=== PATIENT | male | born 1935 | race Caucasian/White ===

== ENCOUNTER 2017-08-13 19:28 | Inpatient (IN) | payer MEDICARE, MEDICAID ==
[2017-08-13 20:32] LABS: #Basophils 0.1 thou/uL (0.0-0.2); #Eosinphils 0.1 thou/uL (0.0-0.7); #Lymphocytes 2.6 thou/uL (1.20-3.40); #Monocytes 0.8 thou/uL (0.11-0.59); #Neutrophils 7.5 thou/uL (1.40-6.50); %Basophils 0.7 % (0.0-1.0); %Eosinophils 0.7 % (0.0-10.0); %Lymphocytes 23.2 % (21.0-51.0); Hematocrit 49.3 % (42.0-52.0); Mean Platelet Volume 9.1 fL (7.4-10.4); Red Blood Cell (RBC) Count 4.67 mill/uL (4.70-6.10)
[2017-08-13 20:56] LABS: ALT (SGPT) 75 U/L (8-55); AST (SGOT) 59 U/L (5-34); Alkaline Phosphatase 69 U/L (40-150); Anion Gap 13 mmol/L (10-20); BUN (Urea Nitrogen) 29 mg/dL (8.4-25.7); Bilirubin, Total 0.8 mg/dL (0.2-1.2); CK (CPK) 58 U/L (30-200); Calc. Creatinine Clearance 0 mL/min (70-130); Calcium 9.4 mg/dL (7.8-10.44); Carbon Dioxide 27 mmol/L (23-31); Chloride 116 mmol/L (98-107); Estimated GFR-MDRD 49; Globulin 4.3 g/dL (2.4-3.5); Protein, Total 7.7 g/dL (5.8-8.1)
--- NOTE | 2017-08-13 21:50 | RAD ---
AP VIEW OF THE CHEST 08/13/17 INDICATION: Low O2 saturations. COMPARISON: Prior exam dated 11/30/13. FINDINGS: There is coarse interstitial markings likely reflecting underlying changes of COPD. Heart size and pu lmonary vasculature are within normal limits. No acute osseous abnormality is evident. No pneumothora x is evident. IMPRESSION: COPD change. No definite acute abnormality. POS: [facility]
[2017-08-13 22:03] LABS: Lactic Acid - Sepsis 1.9 mmol/L (0.5-2.2)
[2017-08-13] MEDS ORDERED: Guaifenesin DM 100-10/5 ML UDCUP PO PRN (23:04)
[2017-08-13] MEDS ORDERED: Acetaminophen 325 MG TAB PO PRN (23:04)
[2017-08-13] MEDS ORDERED: Ondansetron ODT 4 MG TAB PO PRN (23:04)
[2017-08-13] MEDS ORDERED: Lorazepam 0.5 MG TAB PO PRN (23:15)
--- NOTE | 2017-08-14 00:05 | RAD ---
AP VIEW OF THE CHEST 08/13/17 INDICATION: Cough. IMPRESSION: No acute cardiopulmonary abnormality. Stable COPD change when compared to the prior dated 08/13/17 at 7:19 p.m. POS: [facility]
[2017-08-14] MEDS: Sodium Chloride 0.9% 1,000 ML IV SCH ×2 (00:31→08:50)
[2017-08-14 06:02] LABS: #Lymphocytes 0.5 thou/uL (1.20-3.40); #Monocytes 0.1 thou/uL (0.11-0.59); #Neutrophils 7.1 thou/uL (1.40-6.50); %Eosinophils 0.2 % (0.0-10.0); %Lymphocytes 6.4 % (21.0-51.0); %Monocytes 0.8 % (0.0-10.0); Hematocrit 44.7 % (42.0-52.0); Mean Platelet Volume 9.1 fL (7.4-10.4); White Blood Cell (WBC) Count 7.7 thou/uL (4.8-10.8)
[2017-08-14 06:08] LABS: ALT (SGPT) 63 U/L (8-55); AST (SGOT) 36 U/L (5-34); Alkaline Phosphatase 62 U/L (40-150); Anion Gap 10 mmol/L (10-20); BUN (Urea Nitrogen) 29 mg/dL (8.4-25.7); BUN/Creatinine Ratio 22.66; Bilirubin, Total 0.6 mg/dL (0.2-1.2); Calc. Creatinine Clearance 46 mL/min (70-130); Carbon Dioxide 26 mmol/L (23-31); Chloride 119 mmol/L (98-107); Estimated GFR-MDRD 54; Globulin 3.5 g/dL (2.4-3.5); Phosphorus 2.9 mg/dL (2.3-4.7); Protein, Total 6.6 g/dL (5.8-8.1)
--- NOTE | 2017-08-14 07:50 | HP ---
DATE OF ADMISSION: 08/13/2017 CHIEF COMPLAINT: Shortness of breath. HISTORY OF PRESENT ILLNESS: Patient's medical history was primarily obtained from the medical record . Patient is from the EMS and the correction that he came from. The patient is an 82-year-old mal e who was brought to the emergency room with shortness of breath. Apparently, he was eating the dinn er tonight with his family and he threw up. The family got concerned and EMS was called. His SpO2 w as in the low 80s. Patient received DuoNebs and Solu-Medrol en route to the emergency room. SpO2 wa s in 100 after he arrived to the ER. Currently according to record, he is at his baseline mental sta tus, significant history of Alzheimer. PAST MEDICAL HISTORY: Again is Alzheimer, has a history of cardiac arrhythmia, has history of SVT tr eated with ablation. He has dementia and hypertension. PAST SURGICAL HISTORY: He has had right knee replacement, tonsillectomy, and adenoidectomy. SOCIAL HISTORY: Patient is a former smoker, smoked cigarettes and tobacco. No alcohol use. Lives a [facility]. ALLERGIES: He is allergic to RISPERDAL. REVIEW OF SYSTEMS: Not performed secondary to patient's mental status, which is at his baseline acco rding to daughter who was present in the room at the time of the exam, but she stated that was his ba tom. PHYSICAL EXAMINATION: VITAL SIGNS: Blood pressure was good 125/100 in the emergency room on initial presentation, pulse wa s 81, ox sat at 100% on facemask. At the time of exam, patient was not needing facemask anymore. He has nonlabored breathing. Respiratory rate of 20, temperature of 97.4. GENERAL: Constitutionally, patient appeared to be in nonacute distress. HEENT: His head has normal finding, atraumatic, normocephalic. His eyes, pupils equally round and r eactive to light. Normal ear exam. NECK: Normal exam. RESPIRATORY: Does not appear to be in any respiratory distress, slight decreased in breath sounds. CARDIOVASCULAR: Normal rate and rhythm. Heart sounds were normal. ABDOMEN: Nontender, no distention, no mass, no pulsatile mass. EXTREMITIES: He seems to hold his hands over his body and does not like to have them moved. His low er extremities, no edema were noted. Pedal pulses are normal. NEUROLOGIC: Mental status is reported to be at baseline. Speech is at baseline for patient. SKIN: Normal, dry and warm. IMAGING AND LABORATORY DATA: Chest x-ray is negative, no infiltrates, no pneumothorax, no hemothorax , no free air, no effusion. WBC was slightly elevated at 11, but most recent one was down to 7.7. H is hemoglobin is 14.7, sodium 151, chloride at 119. His creatinine initially was 1.39, now 1.28, BUN at 29. His AST and ALT were slightly elevated at 36 and 63 respectively. IMPRESSION: 1. Acute kidney injury with elevated creatinine, now normalized. 2. Dehydration with hypernatremia. The patient started on IV fluids and normal saline. It was only slightly elevated and now it seems to be trending down or stable with sodium of 151. 3. Generalized weakness, likely secondary to dehydration and dementia, chronic, stable mental status at baseline. PLAN: He is in observation. Condition is fair. Activity as tolerated. The patient has been starte d on medications. All of his home medications were resumed. Blood culture is pending, bilateral SCD s applied, he is a FULL CODE. We will continue to monitor his kidney status as well as his fluids ma y consider Nephrology consult as needed. Continue to monitor patient.
[2017-08-14] MEDS: Donepezil HCl 10 MG TAB PO SCH (08:53)
[2017-08-14] MEDS: Multivitamin W/ Minerals 1 TAB PO SCH (08:53)
[2017-08-14] MEDS: Metoprolol Tartrate 25 MG TAB PO SCH (08:58)
[2017-08-14] MEDS ORDERED: FLU VACC TS2017-18 (>65YR) 0.5 ML SYRINGE IM ONE (09:00)
--- NOTE | 2017-08-14 12:52 | PDOC.PN ---
- Subjective Encounter Start Date: 08/14/17 Encounter Start Time: 09:00 Subjective: not in distress, does not communicate or open eyes - Objective MAR Reviewed: Yes Vital Signs & Weight: Vital Signs (12 hours) Temp Pulse Resp BP BP Pulse Ox 08/14/17 12:13 98.1 F 81 16 131/75 100 08/14/17 12:12 97.9 F 105 H 16 127/74 93 L Result Diagrams: 08/14/17 05:23 08/14/17 05:23 Phys Exam - Physical Examination HEENT: PERRLA, sclera anicteric dry mucosa Neck: no JVD, supple Respiratory: no wheezing, no rales Cardiovascular: RRR, no significant murmur Gastrointestinal: soft, non-tender, no distention, positive bowel sounds Musculoskeletal: no edema, pulses present Neurological: non-focal, moves all 4 limbs Dx/Plan (1) Aspiration pneumonitis Code(s): J69.0 - PNEUMONITIS DUE TO INHALATION OF FOOD AND VOMIT Status: Suspected (2) COPD (chronic obstructive pulmonary disease) Status: Chronic Qualifiers: COPD type: unspecified COPD Qualified Code(s): J44.9 - Chronic obstructive pulmonary disease, unspecified (3) Acute kidney injury (nontraumatic) Code(s): N17.9 - ACUTE KIDNEY FAILURE, UNSPECIFIED Status: Resolved (4) Dehydration with hypernatremia Code(s): E87.0 - HYPEROSMOLALITY AND HYPERNATREMIA Status: Acute (5) Generalized weakness Code(s): R53.1 - WEAKNESS Status: Acute (6) Alzheimer's dementia Code(s): G30.9 - ALZHEIMER'S DISEASE, UNSPECIFIED; F02.80 - DEMENTIA IN OTH DISEASES CLASSD ELSWHR W/O BEHAVRL DISTURB Status: Chronic - Plan change iv fluids to d5w -: duoneb -: speech therapy consult -: change status to inpt -: labs in am, no antibiotics for now * . Review of Systems - Medications/Allergies Allergies/Adverse Reactions: Allergies Allergy/AdvReac Type Severity Reaction Status Date / Time risperidone [From Risperdal] Allergy AGITATION Verified 02/19/15 00:58 Medications: Current Medications Acetaminophen (Tylenol) 650 mg PO Q4H PRN PRN Reason: Headache/Fever or Pain Albuterol/Ipratropium (Duoneb) 3 ml NEB Q4H PRN PRN Reason: SOB &/or Wheezing Donepezil HCl (Aricept) 10 mg PO QAM [facility] Last Admin: 08/14/17 08:53 Dose: 10 mg Guaifenesin/Dextromethorphan (Robitussin Dm) 15 ml PO Q4H PRN PRN Reason: Cough Sodium Chloride (Normal Saline 0.9%) 1,000 mls @ 125 mls/hr IV .Q8H [facility] Last Admin: 08/14/17 08:50 Dose: 1,000 mls Iron/Minerals/Multivitamins (Theragran M) 1 tab PO DAILY [facility] Last Admin: 08/14/17 08:53 Dose: 1 tab Lorazepam (Ativan) 0.5 mg PO Q6H PRN PRN Reason: Agitation Memantine (Namenda) 10 mg PO BID [facility] Last Admin: 08/14/17 08:57 Dose: 10 mg Metoprolol Tartrate (Lopressor) 12.5 mg PO DAILY [facility] Last Admin: 08/14/17 08:58 Dose: Not Given Olanzapine (Zyprexa) 2.5 mg PO HS [facility] Ondansetron HCl (Zofran Odt) 4 mg PO Q6H PRN PRN Reason: Nausea/Vomiting Sertraline HCl (Zoloft) 100 mg PO HS [facility] Sodium Chloride (Flush - Normal Saline) 10 ml IVF Q12HR [facility] Last Admin: 08/14/17 08:58 Dose: 10 ml Sodium Chloride (Flush - Normal Saline) 10 ml IVF PRN PRN PRN Reason: Saline Flush
[2017-08-14] MEDS: Dextrose 5% in Water 1,000 ML IV SCH ×2 (13:04→23:43)
[2017-08-14] MEDS: OLANZapine 2.5 MG TAB PO SCH (20:33)
[2017-08-15 04:44] LABS: #Basophils 0.1 thou/uL (0.0-0.2); #Lymphocytes 1.3 thou/uL (1.20-3.40); #Monocytes 0.6 thou/uL (0.11-0.59); %Basophils 0.5 % (0.0-1.0); %Eosinophils 0.2 % (0.0-10.0); %Lymphocytes 11.5 % (21.0-51.0); %Monocytes 5.8 % (0.0-10.0); Hematocrit 40.4 % (42.0-52.0); Mean Platelet Volume 8.8 fL (7.4-10.4); Red Blood Cell (RBC) Count 3.86 mill/uL (4.70-6.10); White Blood Cell (WBC) Count 10.9 thou/uL (4.8-10.8)
[2017-08-15 04:58] LABS: Anion Gap 9 mmol/L (10-20); BUN (Urea Nitrogen) 27 mg/dL (8.4-25.7); Calc. Creatinine Clearance 53 mL/min (70-130); Calcium 8.5 mg/dL (7.8-10.44); Carbon Dioxide 26 mmol/L (23-31); Chloride 116 mmol/L (98-107); Estimated GFR-MDRD 63
[2017-08-15] MEDS: Dextrose 5% in Water 1,000 ML IV SCH ×2 (09:17→14:46)
[2017-08-15] MEDS: Donepezil HCl 10 MG TAB PO SCH (09:21)
[2017-08-15] MEDS: Multivitamin W/ Minerals 1 TAB PO SCH (09:21)
[2017-08-15] MEDS: Metoprolol Tartrate 25 MG TAB PO SCH (09:21)
--- NOTE | 2017-08-15 13:20 | PDOC.PN ---
- Subjective Encounter Start Date: 08/15/17 Encounter Start Time: 10:50 Subjective: does not communicate or open eyes to verbal stimuli -: not in distress - Objective MAR Reviewed: Yes Vital Signs & Weight: Vital Signs (12 hours) Temp Pulse Resp BP Pulse Ox 08/15/17 12:06 98.1 F 50 L 20 117/69 91 L 08/15/17 08:39 98.5 F 62 20 116/69 93 L 08/15/17 08:00 98.5 F 62 20 Weight Admit Weight 156 lb 1.6 oz Weight 159 lb 1.6 oz I&O: 08/14/17 08/15/17 08/16/17 06:59 06:59 06:59 Intake Total 2470 120 Balance 2470 120 Result Diagrams: 08/15/17 03:38 08/15/17 03:38 Phys Exam - Physical Examination HEENT: PERRLA, sclera anicteric Neck: no nodes, no JVD Respiratory: no wheezing, no rales rhonchi+ Cardiovascular: RRR, no significant murmur Gastrointestinal: soft, non-tender, positive bowel sounds Musculoskeletal: no edema, pulses present Neurological: non-focal, moves all 4 limbs Dx/Plan (1) Aspiration pneumonitis Code(s): J69.0 - PNEUMONITIS DUE TO INHALATION OF FOOD AND VOMIT Status: Acute (2) COPD (chronic obstructive pulmonary disease) Status: Chronic Qualifiers: COPD type: COPD with acute exacerbation Qualified Code(s): J44.1 - Chronic obstructive pulmonary disease with (acute) exacerbation (3) Acute kidney injury (nontraumatic) Code(s): N17.9 - ACUTE KIDNEY FAILURE, UNSPECIFIED Status: Resolved (4) Dehydration with hypernatremia Code(s): E87.0 - HYPEROSMOLALITY AND HYPERNATREMIA Status: Acute (5) Generalized weakness Code(s): R53.1 - WEAKNESS Status: Acute (6) Alzheimer's dementia Code(s): G30.9 - ALZHEIMER'S DISEASE, UNSPECIFIED; F02.80 - DEMENTIA IN OTH DISEASES CLASSD ELSWHR W/O BEHAVRL DISTURB Status: Chronic - Plan will start pt on steroids, empiric levaquin -: decrease ivf to 50mls/hr -: hypernatremia is resolving -: modified ba swallow in am -: pt has advanced dementia * . Review of Systems - Medications/Allergies Allergies/Adverse Reactions: Allergies Allergy/AdvReac Type Severity Reaction Status Date / Time risperidone [From Risperdal] Allergy AGITATION Verified 02/19/15 00:58 Medications: Current Medications Acetaminophen (Tylenol) 650 mg PO Q4H PRN PRN Reason: Headache/Fever or Pain Albuterol/Ipratropium (Duoneb) 3 ml NEB Q4H PRN PRN Reason: SOB &/or Wheezing Albuterol/Ipratropium (Duoneb) 3 ml NEB [id number] [facility] Donepezil HCl (Aricept) 10 mg PO QAM [facility] Last Admin: 08/15/17 09:21 Dose: 10 mg Guaifenesin (Mucinex) 600 mg PO Q12HR [facility] Guaifenesin/Dextromethorphan (Robitussin Dm) 15 ml PO Q4H PRN PRN Reason: Cough Dextrose/Water (D5w) 1,000 mls @ 50 mls/hr IV .Q20H [facility] Levofloxacin 500 mg/ Device 100 mls @ 100 mls/hr IVPB Q24HR [facility] Iron/Minerals/Multivitamins (Theragran M) 1 tab PO DAILY [facility] Last Admin: 08/15/17 09:21 Dose: 1 tab Lorazepam (Ativan) 0.5 mg PO Q6H PRN PRN Reason: Agitation Memantine (Namenda) 10 mg PO BID [facility] Last Admin: 08/15/17 09:21 Dose: 10 mg Methylprednisolone Sodium Succinate (Solu-Medrol) 40 mg IVP Q6HR [facility] Metoprolol Tartrate (Lopressor) 12.5 mg PO DAILY [facility] Last Admin: 08/15/17 09:21 Dose: 12.5 mg Olanzapine (Zyprexa) 2.5 mg PO HS [facility] Last Admin: 08/14/17 20:33 Dose: 2.5 mg Ondansetron HCl (Zofran Odt) 4 mg PO Q6H PRN PRN Reason: Nausea/Vomiting Sertraline HCl (Zoloft) 100 mg PO HS [facility] Last Admin: 08/14/17 20:33 Dose: 100 mg Sodium Chloride (Flush - Normal Saline) 10 ml IVF Q12HR [facility] Last Admin: 08/15/17 09:21 Dose: Not Given Sodium Chloride (Flush - Normal Saline) 10 ml IVF PRN PRN PRN Reason: Saline Flush
[2017-08-15] MEDS ORDERED: Clopidogrel Bisulfate 75 MG TAB ONE (17:18)
[2017-08-15] MEDS: guaiFENesin ER 600 MG TAB PO SCH (21:11)
[2017-08-15] MEDS: OLANZapine 2.5 MG TAB PO SCH (21:13)
[2017-08-16] MEDS: Dextrose 5% in Water 1,000 ML IV SCH ×2 (01:38→23:17)
[2017-08-16 06:06] LABS: #Lymphocytes 0.5 thou/uL (1.20-3.40); #Monocytes 0.1 thou/uL (0.11-0.59); #Neutrophils 6.7 thou/uL (1.40-6.50); %Eosinophils 0.3 % (0.0-10.0); %Lymphocytes 6.4 % (21.0-51.0); %Monocytes 1.1 % (0.0-10.0); Hematocrit 40.6 % (42.0-52.0); Mean Platelet Volume 8.6 fL (7.4-10.4); Red Blood Cell (RBC) Count 3.93 mill/uL (4.70-6.10); White Blood Cell (WBC) Count 7.2 thou/uL (4.8-10.8)
[2017-08-16 06:19] LABS: ALT (SGPT) 53 U/L (8-55); AST (SGOT) 29 U/L (5-34); Alkaline Phosphatase 57 U/L (40-150); Anion Gap 8 mmol/L (10-20); BUN (Urea Nitrogen) 21 mg/dL (8.4-25.7); Bilirubin, Total 0.8 mg/dL (0.2-1.2); Calc. Creatinine Clearance 61 mL/min (70-130); Calcium 8.4 mg/dL (7.8-10.44); Carbon Dioxide 24 mmol/L (23-31); Chloride 111 mmol/L (98-107); Estimated GFR-MDRD 75; Globulin 3.2 g/dL (2.4-3.5); Protein, Total 6.1 g/dL (5.8-8.1)
[2017-08-16] MEDS: Multivitamin W/ Minerals 1 TAB PO SCH ×2 (08:11→09:01)
[2017-08-16] MEDS: Metoprolol Tartrate 25 MG TAB PO SCH ×2 (08:11→09:01)
[2017-08-16] MEDS: Donepezil HCl 10 MG TAB PO SCH ×2 (08:11→09:02)
[2017-08-16] MEDS: guaiFENesin ER 600 MG TAB PO SCH ×3 (08:11→20:25)
[2017-08-16 10:56] LABS: Sodium 143 mmol/L (135-148)
[2017-08-16 10:58] LABS: Modified Allen's Test POSITIVE
[2017-08-16 10:59] LABS: Mode RA; Vent NO
--- NOTE | 2017-08-16 11:53 | PDOC.PN ---
- Subjective Encounter Start Date: 08/16/17 Encounter Start Time: 11:10 Subjective: not awake, snoring at present -: not in distress - Objective Resuscitation Status: Resuscitation Status DNR:Do Not Resuscitate MAR Reviewed: Yes Vital Signs & Weight: Vital Signs (12 hours) Temp Pulse Resp BP Pulse Ox 08/16/17 08:44 97.9 F 64 20 122/66 93 L 08/16/17 08:00 97.9 F 64 20 08/16/17 06:25 51 L 20 91 L 08/16/17 03:21 96 08/16/17 00:28 66 12 96 Weight Admit Weight 156 lb 1.6 oz Weight 161 lb 8 oz I&O: 08/15/17 08/16/17 08/17/17 06:59 06:59 06:59 Intake Total 3360 2138 10 Balance 0 2138 10 Result Diagrams: 08/16/17 05:45 08/16/17 05:45 Phys Exam - Physical Examination HEENT: sclera anicteric dry mucosa Neck: no JVD, supple Respiratory: no wheezing, no rales rhonchi+ Cardiovascular: RRR, no significant murmur Gastrointestinal: soft, non-tender, no distention, positive bowel sounds Musculoskeletal: no edema, pulses present Neurological: non-focal, moves all 4 limbs Dx/Plan (1) Aspiration pneumonitis Code(s): J69.0 - PNEUMONITIS DUE TO INHALATION OF FOOD AND VOMIT Status: Acute (2) COPD (chronic obstructive pulmonary disease) Status: Chronic Qualifiers: COPD type: COPD with acute exacerbation Qualified Code(s): J44.1 - Chronic obstructive pulmonary disease with (acute) exacerbation (3) Acute kidney injury (nontraumatic) Code(s): N17.9 - ACUTE KIDNEY FAILURE, UNSPECIFIED Status: Resolved (4) Dehydration with hypernatremia Code(s): E87.0 - HYPEROSMOLALITY AND HYPERNATREMIA Status: Resolved (5) Generalized weakness Code(s): R53.1 - WEAKNESS Status: Acute (6) Alzheimer's dementia Code(s): G30.9 - ALZHEIMER'S DISEASE, UNSPECIFIED; F02.80 - DEMENTIA IN OTH DISEASES CLASSD ELSWHR W/O BEHAVRL DISTURB Status: Chronic - Plan d/w son Mr.Anderson Pinto, pt is known to have advance dementia -: rarely communicates when family visits him, sleeps mostly per son -: He is DNR, this was confirmed with son over phone -: he had apneic spells per RN taking care of him with lips turning blue -: is on levaquin, steroids and nebs. Palliative care consult * . d/w , will involve palliative care and [facility] at his snf. Review of Systems - Medications/Allergies Allergies/Adverse Reactions: Allergies Allergy/AdvReac Type Severity Reaction Status Date / Time risperidone [From Risperdal] Allergy AGITATION Verified 02/19/15 00:58 Medications: Current Medications Acetaminophen (Tylenol) 650 mg PO Q4H PRN PRN Reason: Headache/Fever or Pain Albuterol/Ipratropium (Duoneb) 3 ml NEB Q4H PRN PRN Reason: SOB &/or Wheezing Albuterol/Ipratropium (Duoneb) 3 ml NEB [id number] [facility] Last Admin: 08/16/17 06:25 Dose: 3 ml Donepezil HCl (Aricept) 10 mg PO QAM [facility] Last Admin: 08/16/17 09:02 Dose: 10 mg Guaifenesin (Mucinex) 600 mg PO Q12HR [facility] Last Admin: 08/16/17 09:01 Dose: 600 mg Guaifenesin/Dextromethorphan (Robitussin Dm) 15 ml PO Q4H PRN PRN Reason: Cough Dextrose/Water (D5w) 1,000 mls @ 50 mls/hr IV .Q20H [facility] Last Admin: 08/16/17 01:38 Dose: 1,000 mls Levofloxacin 500 mg/ Device 100 mls @ 100 mls/hr IVPB Q24HR [facility] Last Admin: 08/15/17 14:45 Dose: 100 mls Iron/Minerals/Multivitamins (Theragran M) 1 tab PO DAILY [facility] Last Admin: 08/16/17 09:01 Dose: 1 tab Lorazepam (Ativan) 0.5 mg PO Q6H PRN PRN Reason: Agitation Memantine (Namenda) 10 mg PO BID [facility] Last Admin: 08/16/17 09:01 Dose: 10 mg Methylprednisolone Sodium Succinate (Solu-Medrol) 40 mg IVP Q6HR [facility] Last Admin: 08/16/17 11:31 Dose: 40 mg Metoprolol Tartrate (Lopressor) 12.5 mg PO DAILY [facility] Last Admin: 08/16/17 09:01 Dose: 12.5 mg Ondansetron HCl (Zofran Odt) 4 mg PO Q6H PRN PRN Reason: Nausea/Vomiting Sertraline HCl (Zoloft) 100 mg PO HS [facility] Last Admin: 08/15/17 21:11 Dose: 100 mg Sodium Chloride (Flush - Normal Saline) 10 ml IVF Q12HR [facility] Last Admin: 08/16/17 08:12 Dose: 10 ml Sodium Chloride (Flush - Normal Saline) 10 ml IVF PRN PRN PRN Reason: Saline Flush Last Admin: 08/16/17 06:22 Dose: 10 ml
--- NOTE | 2017-08-16 13:54 | PRG ---
DATE OF SERVICE: 08/16/2017 SERVICE: Pulmonary Medicine. REASON FOR CONSULTATION: Respiratory failure. HISTORY OF PRESENT ILLNESS: The patient is an 82-year-old white male with past medical history significant for very advanced dementia. At baseline, he is bedbound. He talks occasionally, but most of the time he makes incomprehensible speech. Apparently, he is still eating. He does not have a PEG tube. He was eating and had vomiting episode. Shortly following this, he had an episode of difficulty with breathing. EMS was called and when they arrived on the scene, his saturations were in the 80s. He got some Solu-Medrol and nebulized medication. In the Emergency Department, he had recovered his saturations. He currently cannot provide any additional elements of the history. PAST MEDICAL HISTORY: 1. Alzheimer's dementia, advanced. 2. History of SVT, status post ablation. 3. Hypertension. PAST SURGICAL HISTORY: 1. Right knee replacement. 2. Tonsillectomy. 3. Adenoidectomy. SOCIAL HISTORY: Negative for alcohol, tobacco or illicit drug use. He lives at [facility] in [place], [place]. He has no exposure to chemicals, dust asbestos or tuberculosis. ALLERGIES: RISPERDAL. MEDICATIONS: List of inpatient medications was reviewed. There are no specific updates made. 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 PHYSICAL EXAMINATION: VITAL SIGNS: Afebrile, pulse 64, blood pressure 122/66, respirations 20, saturation 93% on room air. GENERAL: Patient is awake, alert, no apparent distress. LUNGS: Decent air entry. There is no prolonged expiratory phase or rhonchi appreciated. HEART: Normal rate, regular. ABDOMEN: Soft, nontender, and nondistended. Bowel sounds positive. MUSCULOSKELETAL: No cyanosis or clubbing. No pitting in the bilateral lower extremities. NEUROLOGIC: Grossly nonfocal. LABORATORY DATA: WBC 7.2, hemoglobin 13.4, and platelets 174,000. ABG is completely unremarkable. His pO2 was 76 on room air at that time, corresponding to saturation of 96%. Basic metabolic profile and liver function studies are unremarkable. BNP 51, cardiac enzymes negative, lactate is unremarkable. Blood cultures x2 are unremarkable. IMAGING: Chest x-ray demonstrates no acute cardiopulmonary abnormality. There is no obvious effusions are identified. ASSESSMENT: 1. Acute hypoxic respiratory failure, resolved. 2. Aspiration, suspected. 3. Chronic obstructive pulmonary disease without current exacerbation. 4. Dehydration secondary to inadequate intake. 5. Alzheimer's dementia, advanced. 6. Oropharyngeal dysphagia, possible. PLAN: I will switch his IV fluids over to half normal saline and continue maintenance doses. I agree with speech evaluation as well as palliative care consultation. The patient ultimately is at the end of his life because of advancing dementia. His antibiotic can be switched over to p.o. medication. We can complete a 5-day course of therapy. Pulmonary/Critical Care will continue to follow for the time being, but from my perspective, he has returned to his baseline and is a candidate for discharge from the hospital. I do think it is reasonable to consider transitioning the patient over to comfort care only as we do not have the ability to fix the underlying process here. PEG tube will not decrease his risk of aspiration related diseases. MTDD
--- NOTE | 2017-08-16 16:18 | RAD ---
MODIFIED BARIUM SWALLOW IN THE PRESENCE OF A SPEECH THERAPIST: Date: 08/16/17 HISTORY: 82-year-old male with unspecified dysphagia, feeding difficulties. FINDINGS: There is aspiration with thin liquids. There is pooling of contrast in the vallecula and piriform sin uses with incomplete emptying on subsequent swallows. Please see recommendations of the speech therapist for further management. POS: [facility]
[2017-08-17 06:09] LABS: #Lymphocytes 0.5 thou/uL (1.20-3.40); #Monocytes 0.4 thou/uL (0.11-0.59); #Neutrophils 14.4 thou/uL (1.40-6.50); %Basophils 0.2 % (0.0-1.0); %Eosinophils 0.3 % (0.0-10.0); %Lymphocytes 3.3 % (21.0-51.0); %Monocytes 2.8 % (0.0-10.0); Hematocrit 44.4 % (42.0-52.0); Mean Platelet Volume 9.5 fL (7.4-10.4); Red Blood Cell (RBC) Count 4.39 mill/uL (4.70-6.10); White Blood Cell (WBC) Count 15.4 thou/uL (4.8-10.8)
[2017-08-17 06:58] LABS: AST (SGOT) 24 U/L (5-34); Bilirubin, Total 0.6 mg/dL (0.2-1.2); Calcium 8.8 mg/dL (7.8-10.44); Chloride 110 mmol/L (98-107)
[2017-08-17 07:09] LABS: ALT (SGPT) 53 U/L (8-55); Alkaline Phosphatase 59 U/L (40-150); Calc. Creatinine Clearance 64 mL/min (70-130); Carbon Dioxide 20 mmol/L (23-31); Estimated GFR-MDRD 82; Globulin 3.4 g/dL (2.4-3.5); Protein, Total 6.4 g/dL (5.8-8.1)
[2017-08-17 07:17] LABS: Anion Gap 13 mmol/L (10-20)
[2017-08-17] MEDS: guaiFENesin ER 600 MG TAB PO SCH ×2 (08:38→20:07)
[2017-08-17] MEDS: Donepezil HCl 10 MG TAB PO SCH (08:38)
[2017-08-17] MEDS: Multivitamin W/ Minerals 1 TAB PO SCH (08:39)
[2017-08-17] MEDS: Metoprolol Tartrate 25 MG TAB PO SCH (08:39)
--- NOTE | 2017-08-17 10:59 | PDOC.PN ---
- Subjective Encounter Start Date: 08/17/17 Encounter Start Time: 08:00 Subjective: not in distress, closed eyes, doesn't respond to verbal stimuli - Objective Resuscitation Status: Resuscitation Status DNR:Do Not Resuscitate MAR Reviewed: Yes Vital Signs & Weight: Vital Signs (12 hours) Temp Pulse Resp BP Pulse Ox 08/17/17 08:00 97.2 F L 77 16 125/71 92 L 08/17/17 07:04 53 L 16 94 L 08/17/17 03:18 96 08/17/17 00:41 60 16 96 Weight Admit Weight 156 lb 1.6 oz Weight 156 lb 6 oz I&O: 08/16/17 08/17/17 08/18/17 06:59 06:59 06:59 Intake Total 2137 1889 Balance 2137 1889 Result Diagrams: 08/17/17 05:43 08/17/17 05:43 Phys Exam - Physical Examination HEENT: PERRLA, sclera anicteric Neck: no JVD, supple Respiratory: no wheezing, no rales Cardiovascular: RRR, no significant murmur Gastrointestinal: soft, non-tender, positive bowel sounds Musculoskeletal: no edema, pulses present Neurological: non-focal, moves all 4 limbs Dx/Plan (1) Aspiration pneumonitis Code(s): J69.0 - PNEUMONITIS DUE TO INHALATION OF FOOD AND VOMIT Status: Acute (2) COPD (chronic obstructive pulmonary disease) Status: Chronic Qualifiers: COPD type: COPD with acute exacerbation Qualified Code(s): J44.1 - Chronic obstructive pulmonary disease with (acute) exacerbation (3) Acute kidney injury (nontraumatic) Code(s): N17.9 - ACUTE KIDNEY FAILURE, UNSPECIFIED Status: Resolved (4) Dehydration with hypernatremia Code(s): E87.0 - HYPEROSMOLALITY AND HYPERNATREMIA Status: Resolved (5) Generalized weakness Code(s): R53.1 - WEAKNESS Status: Acute (6) Alzheimer's dementia Code(s): G30.9 - ALZHEIMER'S DISEASE, UNSPECIFIED; F02.80 - DEMENTIA IN OTH DISEASES CLASSD ELSWHR W/O BEHAVRL DISTURB Status: Chronic - Plan is on levaquin, nebs and steroids -: advanced dementia -: has signs of aspiration on modified Ba swallow -: palliative care, ?hospice set up at [facility] if family agrees -: on gentle hydration, replace potassium * . Review of Systems - Medications/Allergies Allergies/Adverse Reactions: Allergies Allergy/AdvReac Type Severity Reaction Status Date / Time risperidone [From Risperdal] Allergy AGITATION Verified 02/19/15 00:58 Medications: Current Medications Acetaminophen (Tylenol) 650 mg PO Q4H PRN PRN Reason: Headache/Fever or Pain Last Admin: 08/16/17 20:29 Dose: 650 mg Albuterol/Ipratropium (Duoneb) 3 ml NEB Q4H PRN PRN Reason: SOB &/or Wheezing Albuterol/Ipratropium (Duoneb) 3 ml NEB [id number] [facility] Last Admin: 08/17/17 07:04 Dose: 3 ml Donepezil HCl (Aricept) 10 mg PO QAM [facility] Last Admin: 08/17/17 08:38 Dose: 10 mg Guaifenesin (Mucinex) 600 mg PO Q12HR [facility] Last Admin: 08/17/17 08:38 Dose: 600 mg Guaifenesin/Dextromethorphan (Robitussin Dm) 15 ml PO Q4H PRN PRN Reason: Cough Dextrose/Water (D5w) 1,000 mls @ 50 mls/hr IV .Q20H [facility] Last Admin: 08/16/17 23:17 Dose: 1,000 mls Levofloxacin 500 mg/ Device 100 mls @ 100 mls/hr IVPB Q24HR [facility] Last Admin: 08/16/17 13:30 Dose: 100 mls Iron/Minerals/Multivitamins (Theragran M) 1 tab PO DAILY [facility] Last Admin: 08/17/17 08:39 Dose: 1 tab Lorazepam (Ativan) 0.5 mg PO Q6H PRN PRN Reason: Agitation Memantine (Namenda) 10 mg PO BID [facility] Last Admin: 08/17/17 08:38 Dose: 10 mg Methylprednisolone Sodium Succinate (Solu-Medrol) 40 mg IVP Q6HR [facility] Last Admin: 08/17/17 05:09 Dose: 40 mg Metoprolol Tartrate (Lopressor) 12.5 mg PO DAILY [facility] Last Admin: 08/17/17 08:39 Dose: 12.5 mg Ondansetron HCl (Zofran Odt) 4 mg PO Q6H PRN PRN Reason: Nausea/Vomiting Potassium Chloride (K-Dur) 40 meq PO BID-WM [facility] Sertraline HCl (Zoloft) 100 mg PO HS [facility] Last Admin: 08/16/17 20:25 Dose: 100 mg Sodium Chloride (Flush - Normal Saline) 10 ml IVF Q12HR [facility] Last Admin: 08/17/17 08:39 Dose: Not Given Sodium Chloride (Flush - Normal Saline) 10 ml IVF PRN PRN PRN Reason: Saline Flush Last Admin: 08/16/17 06:22 Dose: 10 ml
[2017-08-17] MEDS: Dextrose 5% in Water 1,000 ML IV SCH ×2 (12:02→20:07)
[2017-08-17 12:20] VITALS: BMI 21.2
[2017-08-17] MEDS: Potassium Chloride 20 MEQ TAB PO SCH (17:34)
--- NOTE | 2017-08-17 19:01 | PRG ---
DATE OF SERVICE: 08/17/2017 SERVICE: Pulmonary Medicine. INTERVAL HISTORY: The patient is doing fine from a respiratory standpoint. He remains in his usual state of health. He cannot provide any additional elements of the history because of underlying cogn itive impairment. PHYSICAL EXAMINATION: VITAL SIGNS: Afebrile, pulse 58, blood pressure 130/76, respirations 16, saturation 98% on room air. GENERAL: The patient is awake and alert, in no apparent distress. LUNGS: Decent air entry. Rhonchi are present. No crackles. HEART: Normal rate and regular. ABDOMEN: Soft, nontender and nondistended. Bowel sounds positive. MUSCULOSKELETAL: No cyanosis or clubbing. No pitting in the bilateral lower extremities. NEUROLOGIC: Grossly nonfocal. LABORATORY DATA: WBC 15.4, hemoglobin 14.8 and platelets 181,000. Potassium 3.2. Basic metabolic p rofile and liver function studies are otherwise unremarkable. Creatinine is stable at 0.89 and impro ving actually. Sodium 140. Blood cultures x2 are unremarkable. IMAGING DATA: Modified barium swallow demonstrates no evidence of aspiration or penetration. ASSESSMENT: 1. Acute hypoxic respiratory failure, resolved. 2. Chronic obstructive pulmonary disease without current exacerbation. 3. Dehydration, secondary to inadequate intake. 4. Alzheimer dementia, advanced. 5. Aspiration. PLAN: We will continue a 5-day course of antibiotic therapy. At this point, the patient has no furt her requirements for inpatient Pulmonary Critical Care opinion. As such, we will sign off. The carlos ent is to have a repeat chest x-ray in 4-6 weeks in the outpatient setting to make the infiltrate trudy ars. A palliative care discussion is need to be continued in order to discuss goals of care moving f orward. Given his advanced debility and dementia, the likelihood of recurrent admissions to the hosp ital is extraordinarily high.
[2017-08-18 06:24] LABS: Anion Gap 14 mmol/L (10-20); BUN (Urea Nitrogen) 23 mg/dL (8.4-25.7); Calc. Creatinine Clearance 62 mL/min (70-130); Calcium 9.5 mg/dL (7.8-10.44); Carbon Dioxide 18 mmol/L (23-31); Chloride 110 mmol/L (98-107); Estimated GFR-MDRD 79
[2017-08-18 06:28] LABS: #Lymphocytes 0.4 thou/uL (1.20-3.40); #Monocytes 0.6 thou/uL (0.11-0.59); #Neutrophils 16.9 thou/uL (1.40-6.50); %Basophils 0.1 % (0.0-1.0); %Eosinophils 0.1 % (0.0-10.0); %Lymphocytes 2.1 % (21.0-51.0); %Monocytes 3.6 % (0.0-10.0); Hematocrit 47.3 % (42.0-52.0); Macrocytosis SLIGHT = 6-15 cells (100X) (0-5/hpf); Mean Platelet Volume 10.2 fL (7.4-10.4); Red Blood Cell (RBC) Count 4.51 mill/uL (4.70-6.10)
[2017-08-18] MEDS: Potassium Chloride 20 MEQ TAB PO SCH ×2 (08:26→11:24)
[2017-08-18] MEDS: Metoprolol Tartrate 25 MG TAB PO SCH (08:26)
[2017-08-18] MEDS: Donepezil HCl 10 MG TAB PO SCH (08:26)
[2017-08-18] MEDS: Multivitamin W/ Minerals 1 TAB PO SCH (08:26)
[2017-08-18] MEDS: guaiFENesin ER 600 MG TAB PO SCH ×2 (08:26→20:36)
--- NOTE | 2017-08-18 12:43 | PDOC.PN ---
- Subjective Encounter Start Date: 08/18/17 Encounter Start Time: 10:00 -: non-verbal Subjective: not in distress - Objective Resuscitation Status: Resuscitation Status DNR:Do Not Resuscitate MAR Reviewed: Yes Vital Signs & Weight: Vital Signs (12 hours) Temp Pulse Resp BP Pulse Ox 08/18/17 08:21 60 14 08/18/17 08:00 97.7 F 75 14 116/68 96 08/18/17 01:35 66 16 95 Weight Admit Weight 156 lb 1.6 oz Weight 156 lb 6 oz I&O: 08/17/17 08/18/17 08/19/17 06:59 06:59 06:59 Intake Total 1890 1750 Balance 189 1750 Result Diagrams: 08/18/17 04:26 08/18/17 04:27 Phys Exam - Physical Examination HEENT: moist MMs, sclera anicteric Neck: no JVD, supple Respiratory: no wheezing, no rales Cardiovascular: RRR, no significant murmur Gastrointestinal: soft, no distention, positive bowel sounds Musculoskeletal: no edema, pulses present Neurological: non-focal, moves all 4 limbs Dx/Plan (1) Aspiration pneumonitis Code(s): J69.0 - PNEUMONITIS DUE TO INHALATION OF FOOD AND VOMIT Status: Acute (2) COPD (chronic obstructive pulmonary disease) Status: Chronic Qualifiers: COPD type: COPD with acute exacerbation Qualified Code(s): J44.1 - Chronic obstructive pulmonary disease with (acute) exacerbation (3) Acute kidney injury (nontraumatic) Code(s): N17.9 - ACUTE KIDNEY FAILURE, UNSPECIFIED Status: Resolved (4) Dehydration with hypernatremia Code(s): E87.0 - HYPEROSMOLALITY AND HYPERNATREMIA Status: Resolved (5) Generalized weakness Code(s): R53.1 - WEAKNESS Status: Acute (6) Alzheimer's dementia Code(s): G30.9 - ALZHEIMER'S DISEASE, UNSPECIFIED; F02.80 - DEMENTIA IN OTH DISEASES CLASSD ELSWHR W/O BEHAVRL DISTURB Status: Chronic - Plan d/w son over phone about current condition and risk of re-admission and pos -: -sible worsoning as his dementia progresses. -: they will be meeting with hospice tomorrow -: may dc to snf in am -: nebs, steroids, levaquin and d5w * . Review of Systems - Medications/Allergies Allergies/Adverse Reactions: Allergies Allergy/AdvReac Type Severity Reaction Status Date / Time risperidone [From Risperdal] Allergy AGITATION Verified 02/19/15 00:58 Medications: Current Medications Acetaminophen (Tylenol) 650 mg PO Q4H PRN PRN Reason: Headache/Fever or Pain Last Admin: 08/16/17 20:29 Dose: 650 mg Albuterol/Ipratropium (Duoneb) 3 ml NEB Q4H PRN PRN Reason: SOB &/or Wheezing Albuterol/Ipratropium (Duoneb) 3 ml NEB [id number] [facility] Last Admin: 08/18/17 08:21 Dose: 3 ml Donepezil HCl (Aricept) 10 mg PO QAM [facility] Last Admin: 08/18/17 08:26 Dose: 10 mg Guaifenesin (Mucinex) 600 mg PO Q12HR [facility] Last Admin: 08/18/17 08:26 Dose: 600 mg Guaifenesin/Dextromethorphan (Robitussin Dm) 15 ml PO Q4H PRN PRN Reason: Cough Dextrose/Water (D5w) 1,000 mls @ 50 mls/hr IV .Q20H [facility] Last Admin: 08/17/17 20:07 Dose: 1,000 mls Levofloxacin 500 mg/ Device 100 mls @ 100 mls/hr IVPB Q24HR [facility] Last Admin: 08/17/17 12:06 Dose: 100 mls Iron/Minerals/Multivitamins (Theragran M) 1 tab PO DAILY [facility] Last Admin: 08/18/17 08:26 Dose: 1 tab Lorazepam (Ativan) 0.5 mg PO Q6H PRN PRN Reason: Agitation Memantine (Namenda) 10 mg PO BID [facility] Last Admin: 08/18/17 08:26 Dose: 10 mg Methylprednisolone Sodium Succinate (Solu-Medrol) 20 mg IVP Q8HR [facility] Last Admin: 08/18/17 04:57 Dose: 20 mg Metoprolol Tartrate (Lopressor) 12.5 mg PO DAILY [facility] Last Admin: 08/18/17 08:26 Dose: 12.5 mg Ondansetron HCl (Zofran Odt) 4 mg PO Q6H PRN PRN Reason: Nausea/Vomiting Potassium Chloride (K-Dur) 40 meq PO BID-WM [facility] Sertraline HCl (Zoloft) 100 mg PO HS [facility] Last Admin: 08/17/17 20:07 Dose: 100 mg Sodium Chloride (Flush - Normal Saline) 10 ml IVF Q12HR [facility] Last Admin: 08/18/17 08:26 Dose: Not Given Sodium Chloride (Flush - Normal Saline) 10 ml IVF PRN PRN PRN Reason: Saline Flush Last Admin: 08/17/17 12:01 Dose: 10 ml
[2017-08-18] MEDS: Dextrose 5% in Water 1,000 ML IV SCH ×2 (13:02→20:43)
[2017-08-19 05:19] LABS: #Lymphocytes 0.5 thou/uL (1.20-3.40); #Monocytes 0.7 thou/uL (0.11-0.59); #Neutrophils 15.8 thou/uL (1.40-6.50); %Eosinophils 0.1 % (0.0-10.0); %Monocytes 4.2 % (0.0-10.0); Hematocrit 44.9 % (42.0-52.0); Mean Platelet Volume 9.5 fL (7.4-10.4); Red Blood Cell (RBC) Count 4.37 mill/uL (4.70-6.10); White Blood Cell (WBC) Count 17.1 thou/uL (4.8-10.8)
[2017-08-19 05:59] LABS: Anion Gap 11 mmol/L (10-20); BUN (Urea Nitrogen) 26 mg/dL (8.4-25.7); Calc. Creatinine Clearance 65 mL/min (70-130); Calcium 8.9 mg/dL (7.8-10.44); Carbon Dioxide 21 mmol/L (23-31); Chloride 109 mmol/L (98-107); Estimated GFR-MDRD 83
[2017-08-19 07:37] VITALS: BP 131/77; TEMP 97.8
[2017-08-19] MEDS ORDERED: Potassium Chloride 20 MEQ TAB PO SCH (08:00)
[2017-08-19] MEDS: Multivitamin W/ Minerals 1 TAB PO SCH (09:33)
[2017-08-19] MEDS: Donepezil HCl 10 MG TAB PO SCH (09:33)
[2017-08-19] MEDS: Metoprolol Tartrate 25 MG TAB PO SCH (09:33)
[2017-08-19] MEDS: guaiFENesin ER 600 MG TAB PO SCH (09:34)
--- NOTE | 2017-08-19 13:20 | PDOC.PN ---
- Subjective Encounter Start Date: 08/19/17 Encounter Start Time: 07:25 -: non-verbal Subjective: not in distress - Objective Resuscitation Status: Resuscitation Status DNR:Do Not Resuscitate MAR Reviewed: Yes Vital Signs & Weight: Vital Signs (12 hours) Temp Pulse Resp BP Pulse Ox 08/19/17 08:00 97.8 F 71 18 93 L 08/19/17 07:34 97.8 F 71 18 131/77 93 L 08/19/17 06:48 98.0 F 72 20 121/69 98 08/19/17 06:39 65 14 Weight Admit Weight 156 lb 1.6 oz Weight 156 lb 6 oz I&O: 08/18/17 08/19/17 08/20/17 06:59 06:59 06:59 Intake Total 1750 1850 Balance 1750 1850 Result Diagrams: 08/19/17 04:35 08/19/17 04:35 Phys Exam - Physical Examination HEENT: PERRLA, moist MMs Neck: no JVD, supple Respiratory: no wheezing, no rales Cardiovascular: RRR, no significant murmur Gastrointestinal: soft, non-tender, no distention, positive bowel sounds Musculoskeletal: no edema, pulses present Neurological: non-focal, moves all 4 limbs Dx/Plan (1) Aspiration pneumonitis Code(s): J69.0 - PNEUMONITIS DUE TO INHALATION OF FOOD AND VOMIT Status: Acute (2) COPD (chronic obstructive pulmonary disease) Status: Chronic Qualifiers: COPD type: COPD with acute exacerbation Qualified Code(s): J44.1 - Chronic obstructive pulmonary disease with (acute) exacerbation (3) Acute kidney injury (nontraumatic) Code(s): N17.9 - ACUTE KIDNEY FAILURE, UNSPECIFIED Status: Resolved (4) Dehydration with hypernatremia Code(s): E87.0 - HYPEROSMOLALITY AND HYPERNATREMIA Status: Resolved (5) Generalized weakness Code(s): R53.1 - WEAKNESS Status: Acute (6) Alzheimer's dementia Code(s): G30.9 - ALZHEIMER'S DISEASE, UNSPECIFIED; F02.80 - DEMENTIA IN OTH DISEASES CLASSD ELSWHR W/O BEHAVRL DISTURB Status: Chronic - Plan hemostable -: dc pt to snf -: family have hospice meeting today -: d/w son and daughter yesterday in detail * .
--- NOTE | 2017-08-19 14:21 | DIS ---
DATE OF ADMISSION: 08/14/2017 DATE OF DISCHARGE: 08/19/2017 DISCHARGE DISPOSITION: To half-way. PRIMARY DISCHARGE DIAGNOSES: Aspiration pneumonia; acute on chronic chronic obstructive pulmonary disease exacerbation; acute kidney injury with dehydration and hypernatremia, resolved; generalized weakness; dementia. PROCEDURES DONE DURING HOSPITALIZATION: The patient has had chest x-ray done on the day of admission, which showed stable chronic obstructive pulmonary disease. Modified barium swallow done by speech showed aspiration with thin liquids. There was also pooling of contrast in the vallecula and pyriform sinuses with incomplete emptying and subsequent swallows. Blood cultures x2 no growth. Initial sodium of 152 with discharge numbers of 137. Discharge BUN and creatinine is 26 and 0.8. Albumin is 3.0. One set of cardiac enzymes were negative. BNP 25. DISCHARGE MEDICATIONS: DuoNeb 4 times daily, Levaquin 500 mg p.o. daily for another 3 days, metoprolol 12.5 mg p.o. daily, multivitamin 1 tab once daily, prednisone tapering dose starting at 10 mg over the course of 7 days. ALLERGIES: Allergic to RISPERDAL. INPATIENT CONSULTS: Dr. Connelly for Pulmonology. DISCHARGE PLAN: Patient is to follow up with his primary care physician, Dr. Fischer in 1 week. BRIEF COURSE DURING HOSPITALIZATION: Patient initially was sent from [facility] for complaints of coughing and expectoration which follows soon after eating. His initial saturations were in the low 80s, which promptly came up to 100% on nasal oxygen supplementation. Patient is 82 years old as well. He has underlying dementia. He has had speech therapy evaluation done, which confirmed aspiration. The patient was admitted to medical floor for aspiration pneumonitis with COPD exacerbation. He was on IV antibiotics along with DuoNebs and steroids. He has had consultation with Dr. Connelly for Pulmonology. The patient has responded well to the above measures. I have had long discussions with patient's son, Mr. Mynor Pinto and patient's daughter, Ms. Juan regarding ongoing issues with likely further aspiration and dehydration due to his advanced dementia and not taking in adequate fluids and oral intake. They would like to discuss with hospice and Dr. Fischer going forward. He is hemodynamically stable and will be shortly discharged back to half-way. A total of 35 minutes was spent on discharge plan. Please see a face to face documentation on [facility] for the day of discharge. [facility]
[2017-08-26 10:56] LABS: BUN (Urea Nitrogen) 19 mg/dL (8.4-25.7)
--- NOTE | 2017-09-04 15:24 | EKG ---
Test Reason : Blood Pressure : / mmHG Vent. Rate : 087 BPM Atrial Rate : 087 BPM P-R Int : 124 ms QRS Dur : 102 ms QT Int : 406 ms P-R-T Axes : 021 -52 086 degrees QTc Int : 488 ms Sinus rhythm with marked sinus arrhythmia Left anterior fascicular block Abnormal ECG Confirmed by TOSIN MCKINNON M.D. ([id number]), newspaper managing editor VIDAL BUCKLEY ([id number]) on 09/04/2017 3:24:22 PM Referred By: Confirmed By:TOSIN MCKINNON M.D.
== END 2017-08-19 11:42 | DRG 177 ==
LOC: ERS 19:28 → T4-A 22:14 → OBSVTOIN 08-14 10:44
PROVIDERS: ADMIT Family Medicine; ATTEND Family Medicine
DX: J69.0 Pneumonitis due to inhalation of food and vomit (principal); J96.01 Acute respiratory failure with hypoxia; N17.9 Acute kidney failure, unspecified; E87.0 Hyperosmolality and hypernatremia; J44.1 Chronic obstructive pulmonary disease with (acute) exacerbation; G30.9 Alzheimer's disease, unspecified; F02.80 Dementia in other diseases classified elsewhere, unspecified severity, without behavioral disturbance, psychotic disturbance, mood disturbance, and anxiety; E86.0 Dehydration; I10 Essential (primary) hypertension; R13.12 Dysphagia, oropharyngeal phase; Z66 Do not resuscitate; Z51.5 Encounter for palliative care
CPT/HCPCS: 36415; 71010; 74230; 80048; 80053; 80069; 82553; 82805; 83605; 83880; 84484; 85025; 87040; 93005; 94640; 94760; A4216; G8996-GN-CK; G8997-GN-CK; J1956; J2920; J7620